=== PATIENT | male | born 1990 | race Native Hawaiian/Other Pacific Islander ===

== ENCOUNTER 2018-06-21 22:49 | Emergency (ER) | payer OTHER ==
[~2018-06-21] VITALS: Ht 198.1 cm; Wt 127.0 kg
[2018-06-21 23:00] VITALS: TEMP 97.7
[2018-06-22 01:14] VITALS: BP 124/81
== END 2018-06-22 01:24 | disposition home or self-care (01) ==
LOC: ED 22:49
DX: S49.92XA Unspecified injury of left shoulder and upper arm, initial encounter (principal); W19.XXXA Unspecified fall, initial encounter
CPT/HCPCS: 36415; 96372; 96374; 96375; 96376; 99284; J2270; J2360; J2405